=== PATIENT | male | born 1945 | race Caucasian/White ===

== ENCOUNTER → 2019-08-02 | Outpatient (CLI) | payer OTHER ==
[~2019-08-02] VITALS: Ht 162.6 cm; Wt 72.6 kg
[~2019-08-02] MED LIST: GLIMEPIRIDE4 MG PO; IRON325 PO; LOSARTAN-HCTZ1 EAC3 PO; METFORMIN HCL500 M3 PO; SIMVASTATIN80 MG PO; SUPER B COMPLE1 EAC2 PO; VITAMIN B-121000 MC2 PO
--- NOTE | 2019-08-03 11:04 | P ---
[facility] [place] [address] PROCEDURE REPORT Name: BRENDEN ABBOTT Steve Room #: REG [facility]#: [id number] Admission: 08/02/19 Attend Phys: Diego Perez MD Discharge: Date of : 49 Report #: [id number] THIS REPORT FOR: //name// CC: Diego Estrada MD OUTPATIENT UPPER ENDOSCOPY BRIEF HISTORY: The patient is a 74-year-old male with recent findings of mild anemia. He is on iron replacement. He denies any upper GI symptoms at this time. There is no family history of celiac disease. POSTOPERATIVE DIAGNOSES: 1. Moderate diffuse gastritis. 2. Patchy bulbar duodenitis. 3. Small hiatus hernia. 4. Question of short segment of Muñoz's esophagus. SPECIMENS: 1. Small bowel biopsies to rule out celiac disease. 2. Biopsies of gastritis. 3. Biopsies of distal esophagus, rule out Muñoz. ESTIMATED BLOOD LOSS: 3 mL. PROCEDURE: EGD with biopsy. FINDINGS: Prior to propofol sedation, procedure of upper endoscopy discussed with the patient as well as potential risks and its complications. He indicates he understands and desires that we proceed. DESCRIPTION OF PROCEDURE: With the patient in left lateral decubitus position, the Olympus video endoscope was inserted in the cervical esophagus under direct vision without difficulty. Examination of this organ through its entire length revealed normal esophageal mucosa throughout the entire esophagus. There was no endoscopic evidence of esophagitis. However, examination of distal esophagus revealed a broad tongue of gastric type mucosa extending about 2 cm in distal esophagus. This was examined with white light and narrow banded imaging. The mucosa was flat. No ulcers or mass lesions or nodules were seen. Biopsies were obtained to evaluate for Muñoz's. In addition, a small hiatus hernia was encountered. The mucosa and hernia was unremarkable. Scope was advanced in the stomach, which was examined on end view as well as retroflexed views. There was a pattern of diffuse gastritis. No ulcers were seen. There were a few scattered erosions. There is no evidence of bleeding. Upon retroflexion, hiatus hernia was seen. No other abnormalities were identified. The pylorus was normal. Examination of duodenal bulb revealed patchy bulbar duodenitis [facility] [address] [place] [address] PROCEDURE REPORT Name: BRENDEN ABBOTT Steve Room #: REG [facility].#: [id number] Admission: 08/02/19 Attend Phys: Diego Perez MD Discharge: Date of : 49 Report #: [id number] without evidence of bleeding or ulcers or erosions. Examination of duodenal sweep down to third portion revealed normal mucosa. At that point, the scope was slowly withdrawn and careful circumferential views were obtained. Biopsies obtained of the duodenum to evaluate for celiac disease. Biopsies obtained of the gastritis as well. CONDITION OF THE PATIENT UPON DISCHARGE: Following procedure, the patient was drowsy. He was then prepared for colonoscopy. INSTRUCTIONS TO THE PATIENT AND FAMILY AT THE TIME OF DISCHARGE: We will follow up on biopsies obtained today and make further recommendations. If the biopsies do confirm Muñoz, he may benefit from use of a PPI. We will proceed with colonoscopy at this time. <ELECTRONICALLY SIGNED> By: Diego Perez MD 08/03/19 1104 1021 1040 Diego Perez MD /nt
--- NOTE | 2019-08-03 11:04 | P ---
[facility] [place] [address] PROCEDURE REPORT Name: MILENABRENDEN Steve Room #: REG [facility]#: [id number] Admission: 08/02/19 Attend Phys: Diego Perez MD Discharge: Date of : 49 Report #: [id number] THIS REPORT FOR: //name// CC: Diego Estrada DATE OF SERVICE: 08/02/2019 OUTPATIENT COLONOSCOPY REPORT BRIEF HISTORY: The patient is a 74-year-old male with history of colon polyps. He also has been found to be anemic. PREOPERATIVE DIAGNOSES: Anemia and history of colon polyp. POSTOPERATIVE DIAGNOSES: 1. Flat polyps x 2, proximal ascending colon. 2. Moderately severe left-sided diverticulosis coli. 3. Internal hemorrhoids. MEDICATIONS: Deep sedation with propofol per anesthesia. SPECIMEN: Polyps from proximal ascending colon. ESTIMATED BLOOD LOSS: 3 mL. PROCEDURE: Colonoscopy to cecum and terminal ileum with biopsy. DESCRIPTION OF PROCEDURE: With the patient in left lateral decubitus position, digital examination was completed, which revealed no abnormalities. Subsequently, the Olympus video colonoscope was introduced in the rectum, advanced under direct vision to the cecum. Done with minimal difficulty. The cecum was identified by the ileocecal valve and the appendiceal orifice. At that point, the scope was slowly withdrawn and careful circumferential views were obtained. Upon slow withdrawal of the scope, there were some limitations of prep with frothy bilious material in the proximal colon. We were able to irrigate extensively and suction and overall obtained a good prep. As we withdrew the scope, 2 polyps were seen in the proximal ascending colon. One was a flat polyp in the range of about 4 mm, removed with multiple biopsies. The second was a flat polyp draped over a fold. It was probably 8 mm in length and about 2-3 mm in width and removed with biopsy forceps in a piecemeal fashion. Scope was further withdrawn and no additional polypoid lesions were seen. However, in the sigmoid colon, there was moderately severe diverticular disease without endoscopic evidence of diverticulitis. Scope was withdrawn in the rectum, no abnormalities were seen. However, upon retroflexion, [facility] [address] [place] [address] PROCEDURE REPORT Name: BRENDEN ABBOTT Room #: REG [facility].#: [id number] Admission: 08/02/19 Attend Phys: Diego Perez MD Discharge: Date of : 49 Report #: [id number] hemorrhoids were seen. Scope was withdrawn. The patient tolerated the procedure well. CONDITION OF THE PATIENT UPON DISCHARGE: Following procedure, the patient drowsy, aroused, conversant and will be discharged home when fully ambulatory. INSTRUCTIONS TO THE PATIENT AND FAMILY AT THE TIME OF DISCHARGE: As for the anemia, I do not see any bleeding lesions. He should follow up with Dr. Estrada. If there remains concern about anemia, an M2 capsule study could be completed at a later date. He has a history of polyps and 2 polyps removed today. We will follow up on the pathology. If one or both polyps are adenomatous, he should return in 5 years; if neither is an adenoma, then 10 years would be indicated. <ELECTRONICALLY SIGNED> By: Diego Perez MD 08/03/19 1104 1102 1235 Diego Perez MD /nt
--- NOTE | 2019-08-05 17:07 | PATH ---
[facility] [place] [address] [place] [address] PATHOLOGY RPT PROCEDURE Name: BRENDEN BROWN Room #: REG [facility].#: [id number] Admission: 08/02/19 Date of : 49 Discharge: Report #: [id number] Path Case #: [id number] [facility] Accession Number: [id number] . 01 Material submitted: . PART A: small bowel - BIOPSY OF SMALL BOWEL REGARDING CELIAC DISEASE TO R/O ANEMIA PART B: stomach - BIOPSY OF GASTRITIS TO R/O H. PYLORI PART C: esophagus - BIOPSY OF DISTAL ESOPHAGUS TO R/O COMBS'S ESOPHAGUS. Modifiers: distal PART D: colon - POLYP AT PROXIMAL ASCENDING COLON X2. Modifiers: proximal, ascending . 01 Clinical history: . Pre-OP DX: Anemia Post-OP DX: Gastritis, duodenitis, hiatal hernia, possible Combs's, colon polyps, diverticulosis, hemorrhoids . 02 Diagnosis: A. Small bowel mucosa, rule out celiac disease, endoscopic biopsy: - Moderate acute and chronic nonspecific duodenitis associated with fundic-type metaplasia, compatible with peptic duodenitis. - Focal minimal villous blunting and fibrotic lamina propria identified in association with peptic duodenitis. - Negative for increase in intraepithelial lymphocytes. . B. Gastric mucosa, gastritis, rule out H. pylori, endoscopic biopsy: - Mild chronic inflammation. - Negative for intestinal metaplasia or atrophy. - Negative for Helicobacter pylori (properly controlled immunohistochemical stain performed). . C. Gastroesophageal mucosa, distal esophagus to rule out Combs's, endoscopic biopsy: - Specialized columnar epithelium (gastric-type mucosa) with focal intestinal metaplasia, consistent with Combs's metaplasia (please see comment). - Negative for dysplasia. - Squamous mucosa with mild esophagitis. . D. Polyp x 2, proximal ascending, endoscopic biopsy: - Multiple fragments showing tubular adenoma. - Negative for high-grade dysplasia. (IUV:pit 08/05/2019) QTP 08/05/2019 1229 Local . 02 Comment: [address] [address] PATHOLOGY RPT PROCEDURE Name: BRENDEN BROWN Room #: REG [facility]#: [id number] Admission: 08/02/19 Date of : 49 Discharge: Report #: [id number] Path Case #: [id number] The above diagnosis of Combs's esophagus is made due to presence of intestinal metaplasia and with the assumption that the biopsies were obtained from the columnar mucosa in the distal esophagus located at least 1 cm proximal to the top of the gastric folds as per the 2016 ACG guidelines. (IUV:pit 08/05/2019) . 02 Electronically signed: . Carolyn Thompson MD, Pathologist NPI- [id number] . 01 Gross description: . A. Received in formalin labeled "Brenden Brown, BX of small bowel to rule out anemia," are 7 segments of agudelo soft tissue measuring 1.5 x 1.1 x 0.3 cm in aggregate dimensions and ranging from 0.2 to 0.5 cm in maximum dimension. The specimen is submitted entirely in cassette A1. . B. Received in formalin labeled "Brenden Brown, BX of gastritis to rule out H. pylori," are 6 segments of agudelo soft tissue measuring 1.3 x 1.1 x 0.2 cm in aggregate dimensions and ranging from 0.2 to 0.6 cm in maximum dimension. The specimen is submitted entirely in cassette B1. . C. Received in formalin labeled "Brenden Brown, BX of distal esophagus to rule out Combs's," are 2 segments of agudelo soft tissue measuring 0.6 x 0.3 x 0.2 cm in aggregate dimensions and ranging from 0.2 to 0.4 cm in maximum dimension. The specimen is submitted entirely in cassette C1. . D. Received in formalin labeled "Brenden Brown, polyp at proximal ascending colon," and additionally labeled on the requisition as "x2," are multiple segments of agudelo soft tissue measuring 1.8 x 0.5 x 0.1 cm in aggregate dimensions. The specimen is filtered and entirely submitted in cassette D1. (TSD; 08/02/2019) TOB/TOB 08/02/2019 1930 Local . 02 Pathologist provided ICD-10: K29.80, K29.50, K22.70, D12.2 . 02 CPT . 878495, 042237, 958184, 471454, W97167 Specimen Comment: A courtesy copy of this report has been sent to [phone] Specimen Comment: [id number] Specimen Comment: Report sent to / DR ERWIN Performed at: [address], [place], [place] [id number] MD Darian Wong MD Phone: [phone] [facility] [address] [place] [address] PATHOLOGY RPT PROCEDURE Name: BRENDEN BROWN Room #: REG [facility]#: [id number] Admission: 08/02/19 Date of : 49 Discharge: Report #: [id number] Path Case #: [id number] Performed at: 02 [facility] [address], [place] [id number] MD Carolyn Thompson MD Phone: [phone]
== END | disposition home or self-care (01) ==
LOC: GI 08:51
DX: D64.9 Anemia, unspecified (principal); D12.2 Benign neoplasm of ascending colon; K57.30 Diverticulosis of large intestine without perforation or abscess without bleeding; K64.8 Other hemorrhoids; K29.50 Unspecified chronic gastritis without bleeding; K29.80 Duodenitis without bleeding; K20.9 Esophagitis, unspecified; K22.70 Barrett's esophagus without dysplasia; K44.9 Diaphragmatic hernia without obstruction or gangrene; I10 Essential (primary) hypertension; E78.5 Hyperlipidemia, unspecified; E11.9 Type 2 diabetes mellitus without complications; F17.210 Nicotine dependence, cigarettes, uncomplicated; Z98.890 Other specified postprocedural states; Z98.42 Cataract extraction status, left eye; Z79.899 Other long term (current) drug therapy; Z88.8 Allergy status to other drugs, medicaments and biological substances
CPT/HCPCS: 62110; 62900

== ENCOUNTER → 2020-05-29 | Outpatient (CLI) | payer OTHER | LOC: LAB 10:08 | PROVIDERS: ATTEND Specialist | DX: Z01.812 Encounter for preprocedural laboratory examination (principal); Z20.828 Contact with and (suspected) exposure to other viral communicable diseases ==

== ENCOUNTER → 2020-06-03 | Outpatient (CLI) | payer OTHER ==
[~2020-06-03] VITALS: Ht 165.1 cm; Wt 74.4 kg
[~2020-06-03] MED LIST changes: +TUMS200 MG PO
--- NOTE | 2020-06-05 10:51 | P ---
[facility] [address] PROCEDURE REPORT Name: BRENDEN ABBOTT Room #: REG [facility] [place]#: [id number] Admission: 06/03/20 Attend Phys: Med Dixon Discharge: Date of : 49 Report #: [id number] THIS REPORT FOR: cc: Carlos Estrada,Med Reinoso MD ~ CC: Med Estrada MD DATE OF SERVICE: 06/03/2020 PROCEDURE PERFORMED: Upper endoscopy with biopsies. HISTORY OF PRESENT ILLNESS: The patient is a 75-year-old male who underwent an EGD and colonoscopy by my partner, Dr. Perez on 08/02/2019. 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 No evidence of dysplasia. Gastritis was also noted. Biopsies were negative for H. pylori. He was instructed to start PPI therapy, but he never did and was recommended to have repeat EGD at this time. He denies any significant heartburn. He denies any dysphagia. Plan is for EGD. DESCRIPTION OF PROCEDURE: The risks and benefits of the procedure were explained to the patient, those risks including but not limited to bleeding, perforation and the risk of sedation. He understood these risks and gave informed consent. Sedation was given using propofol per anesthesia. Next, using a standard Olympus upper endoscope, the scope was placed in the patient's mouth and advanced under direct vision through the esophagus, stomach and into the second portion of the duodenum. The larynx was normal in appearance. The upper and mid esophagus was normal. In the distal esophagus, 2 possible islands of Muñoz's was noted. Biopsies were obtained. Also noted was grade A erosive esophagitis. Upon entering the stomach, a small hiatal hernia was noted. Overall, there was a mild gastritis. I did not repeat biopsies as these were just done in July and were negative for H. pylori. The pylorus was normal and patent. The duodenal bulb, first and second portion were all normal. The scope was then withdrawn and the procedure terminated. The patient tolerated the procedure well. RECOMMENDATIONS: 1. Await biopsy results. 2. Recommend long-term daily PPI therapy. [address] [address] PROCEDURE REPORT Name: MILENABRENDEN Steve Room #: REG [facility]#: [id number] Admission: 06/03/20 Attend Phys: Med Dixon Discharge: Date of : 49 Report #: [id number] Thank you for allowing me to participate in his care. <ELECTRONICALLY SIGNED> By: Med Lim MD 06/05/20 1051 1129 Med Lim MD /nt
--- NOTE | 2020-06-05 17:06 | PATH ---
[facility] [address] [place] [address] PATHOLOGY RPT PROCEDURE Name: BRENDEN BROWN Room #: REG [facility]#: [id number] Admission: 06/03/20 Date of : 49 Discharge: Report #: [id number] Path Case #: [id number] [facility] Accession Number: [id number] . 01 Material submitted: . esophagus - ESOPHAGEAL BIOPSY R/O BARRETTS . 01 Clinical history: . HX OF PRE-COMBS'S/COMBS'S . 02 Diagnosis: Gastroesophageal mucosa, esophagus, endoscopic biopsy: - Focal specialized columnar epithelium (gastric cardia-type mucosa) associated with intestinal metaplasia, compatible with Combs's metaplasia. - Negative for dysplasia. - Squamous mucosa with mild esophagitis. (IUV:wilfredo; 06/05/2020) QMS 06/05/2020 1325 Local . 02 Comment: The above diagnosis of Combs's esophagus is made due to presence of intestinal metaplasia and with the assumption that the biopsies were obtained from the columnar mucosa in the distal esophagus located at least 1 cm proximal to the top of the gastric folds as per the 2016 ACG guidelines. (IUV:wilfredo; 06/05/2020) . 02 Electronically signed: . Carolyn Thompson MD, Pathologist NPI- [id number] . 01 Gross description: . Received in formalin labeled "Brenden Brown esophageal bx" are two agudelo-brown soft tissue fragments measuring in aggregate 0.5 x 0.5 x 0.1 cm. The specimen is submitted entirely in A1. ([facility]; 06/04/2020) [facility] 06/04/2020 1608 Local . 02 Pathologist provided ICD-10: K20.90 . 02 CPT . 281821 Specimen Comment: A courtesy copy of this report has been sent to [phone] Specimen Comment: [id number] Specimen Comment: Report sent to / [place] [address] PATHOLOGY RPT PROCEDURE Name: BRENDEN BROWN [facility] [id number] Admission: 06/03/20 Date of : 49 Discharge: Report #: [id number] Path Case #: [id number] Performed at: 01 [facility] K[facility]ie [facility] [address], [place] [id number] MD Genaro Mancilla MD Phone: [phone] Performed at: [address] [id number] MD Carolyn Thompson MD Phone: [phone]
== END | disposition home or self-care (01) ==
LOC: GI 09:42
PROVIDERS: ATTEND Specialist
DX: K22.70 Barrett's esophagus without dysplasia (principal); K29.70 Gastritis, unspecified, without bleeding; K21.00 Gastro-esophageal reflux disease with esophagitis, without bleeding; K44.9 Diaphragmatic hernia without obstruction or gangrene; I10 Essential (primary) hypertension; E11.9 Type 2 diabetes mellitus without complications; E78.5 Hyperlipidemia, unspecified; D64.9 Anemia, unspecified; F17.210 Nicotine dependence, cigarettes, uncomplicated; Z98.890 Other specified postprocedural states; Z79.899 Other long term (current) drug therapy; Z88.8 Allergy status to other drugs, medicaments and biological substances; Z98.42 Cataract extraction status, left eye
CPT/HCPCS: 62110; 62900